=== PATIENT | male | born 1980 | race Caucasian/White ===

== ENCOUNTER → 2019-08-22 07:51 | Outpatient (BNVA) | payer OTHER, SELFPAY | PROVIDERS: Visit Provider Psychiatry & Neurology Psychiatry | DX: F12.90 Cannabis use, unspecified, uncomplicated (principal); F31.9 Bipolar disorder, unspecified; Z79.899 Other long term (current) drug therapy | CPT/HCPCS: 80061; 82947; 99213 ==

== ENCOUNTER 2019-09-24 14:31 | Outpatient (CLI) | payer OTHER, SELFPAY ==
--- NOTE | 2019-09-24 | XR_ITS ---
WS: [id number] CHEST 2 VIEWS HISTORY: DYSPNEA COMPARISON: 05/24/2019 Lungs: Clear with no abnormality. No pleural effusion or pneumothorax. Cardiac size: Normal. Mediastinum/Aorta: Normal mediastinum. Bones: Normal. XR/XR chest 2V* [id number] IMPRESSION: Normal chest.
== END 2019-09-24 14:32 | disposition home or self-care (01) ==
LOC: RADWPI 14:35
PROVIDERS: PCP Nurse Practitioner Family; Visit Provider Nurse Practitioner Family
DX: R06.00 Dyspnea, unspecified (principal)
CPT/HCPCS: 71046

== ENCOUNTER 2019-10-23 11:26 | Outpatient (CLI) | payer OTHER, SELFPAY ==
--- NOTE | 2019-10-23 11:43 | XR_ITS ---
WS: [id number] XR acute abdomen series [id number] REASON FOR EXAM: LUQ PAIN FINDINGS: Acute obstruction series upright chest AP upright abdomen. The chest shows normal appearance the lung lai are well aerated. No pneumonia, pleural effusion, p ulmonary edema, The heart is normal in size and configuration. There is no free air under the diaphragms. There is gas throughout the large bowel but no air-fluid levels are seen. In the left lower quadrant of the abdomen there is nonspecific gas and fecal stasis. Nonspecific abdominal findings XR/XR acute abdomen series [id number] IMPRESSION: Nonspecific gas and fecal stasis.
[2019-10-23 12:10] LABS: Basophils % 0.9 %; Eosinophils # 0.4 10^3/uL (0.0-0.8); Eosinophils % 9.2 %; Hematocrit 45.2 % (42.0-52.0); Hemoglobin 15.4 g/dL (11.7-16.6); Lymphocytes # 2.2 10^3/uL (0.8-4.8); Lymphocytes % 46.5 %; Mean Corpuscular HGB Conc 34.1 g/dL (30.0-36.0); Mean Corpuscular Hemoglobin 32.6 pg (28.0-34.0); Mean Corpuscular Volume 95.8 fL (80-94); Monocytes # 0.4 10^3/uL (0.2-0.9); Monocytes % 8.5 %; Neutrophils # 1.6 10^3/uL (1.8-7.7); Neutrophils % 34.7 %; Nucleated Red Blood Cells % 0 %; Platelet Count 229 10^3/cmm (130-400); Red Blood Count 4.72 10^6/uL (4.1-5.3); White Blood Count 4.7 10^3/uL (4.0-10.0)
== END 2019-10-23 11:27 | disposition home or self-care (01) ==
LOC: RAD 11:28
PROVIDERS: PCP Nurse Practitioner Family; Visit Provider Nurse Practitioner Family
DX: R10.12 Left upper quadrant pain (principal); K59.09 Other constipation
CPT/HCPCS: 36415; 74022; 85025